=== PATIENT | male | born 1955 | race Caucasian/White ===

== ENCOUNTER → 2017-07-11 | Outpatient (REF) | payer BC ==
[~2017-07-11] MED LIST: /PANT40TA; ACET65TA; AMPI500C; COENZYME Q10; COLA100C2; FISHCAP; GLUCOSAMINE; LEVA500T; METROGEL; PERC7.5T8; PROT20TA11; THERGRAN; VICO5TAB; [UNRECOGNIZED DRUG - OTHER]; [UNRECOGNIZED DRUG - REMARK]
== END ==
LOC: M LAB REF 13:54
PROVIDERS: ATTEND Internal Medicine
DX: M79.1 Myalgia (principal); M25.50 Pain in unspecified joint

== ENCOUNTER → 2017-10-15 | Outpatient (REF) | payer BC ==
[2017-10-15 14:10] LABS: URIC ACID 8.1 MG/DL (3.5-7.2)
== END ==
LOC: M LAB REF 13:51
DX: M10.9 Gout, unspecified (principal)
CPT/HCPCS: 84550

== ENCOUNTER 2017-10-29 07:40 | Day surgery (SDC) | payer BC ==
[2017-10-29] MEDS: LR 1,000 ML IV (07:59)
[2017-10-29] MEDS ORDERED: LIDOCAINE 2% INJ 100 MG/5 ML SDV (FOR ANES.) As Ordered (08:44)
[2017-10-29] MEDS ORDERED: PROPOFOL 200 MG/20 ML VIAL As Ordered ×3 (08:44→09:18)
[2017-10-29] MEDS ORDERED: ONDANSETRON 4MG/2ML VIAL (J2405) As Ordered (09:00)
== END 2017-10-29 13:04 | disposition home or self-care (01) ==
LOC: M OPP 07:40
DX: Z12.11 Encounter for screening for malignant neoplasm of colon (principal); Z98.0 Intestinal bypass and anastomosis status; K64.4 Residual hemorrhoidal skin tags; K21.9 Gastro-esophageal reflux disease without esophagitis; R00.8 Other abnormalities of heart beat; M10.9 Gout, unspecified; K57.32 Diverticulitis of large intestine without perforation or abscess without bleeding; Z87.19 Personal history of other diseases of the digestive system; R12 Heartburn; I51.7 Cardiomegaly; M19.90 Unspecified osteoarthritis, unspecified site; M54.9 Dorsalgia, unspecified; G47.30 Sleep apnea, unspecified; R06.83 Snoring; N40.1 Benign prostatic hyperplasia with lower urinary tract symptoms; E66.01 Morbid (severe) obesity due to excess calories; Z88.8 Allergy status to other drugs, medicaments and biological substances; Z88.5 Allergy status to narcotic agent; Z79.82 Long term (current) use of aspirin; Z79.899 Other long term (current) drug therapy
CPT/HCPCS: G0121

== ENCOUNTER → 2018-02-17 | Outpatient (REF) | payer BC ==
[2018-02-17 14:07] LABS: URIC ACID 7.7 MG/DL (3.5-7.2)
== END ==
LOC: M LAB REF 13:27
DX: M10.9 Gout, unspecified (principal)
CPT/HCPCS: 84550

== ENCOUNTER → 2018-03-28 | Outpatient (REF) | payer BC ==
[2018-03-28 19:32] LABS: APPEARANCE, URINE CLEAR (CLEAR); BACTERIA, URINE AUTO NEGATIVE (NEGATIVE); BILIRUBIN, URINE AUTO NEGATIVE (NEGATIVE); BLOOD, URINE BLOOD NEGATIVE (NEGATIVE); COLOR, URINE YELLOW (YELLOW); GLUCOSE, URINE (UA) AUTO NEGATIVE (NEGATIVE); KETONE, URINE AUTO NEGATIVE (NEGATIVE); LEUKOCYTE ESTERASE, URINE AUTO NEGATIVE (NEGATIVE); NITRITE, URINE AUTO NEGATIVE (NEGATIVE); PROTEIN, URINE AUTO NEGATIVE (NEGATIVE); RBC, URINE AUTO 0 /HPF (0-3); SPECIFIC GRAVITY URINE AUTO 1.016 (1.002-1.035); SQUAMOUS EPITHELIAL CELL UR AU 0 /HPF (0-6); UROBILINOGEN, URINE AUTO 0.2 mg/dL (0.0-2.0); WBC, URINE AUTO 0 /HPF (0-3)
== END ==
LOC: M SMT 17:00
DX: N34.2 Other urethritis (principal)
CPT/HCPCS: 81001

== ENCOUNTER → 2018-04-07 | Outpatient (REF) | payer BC | LOC: M SMT 16:54 | DX: N40.1 Benign prostatic hyperplasia with lower urinary tract symptoms (principal) | CPT/HCPCS: 88108 ==

== ENCOUNTER → 2018-04-11 | Outpatient (CLI) | payer BC ==
[2018-04-11 16:49] LABS: BASO % 0.7 % (0.0-1.0); EOS # 0.2 10^3/uL (0.0-0.50); EOS % 2.6 % (0.0-3.0); HEMATOCRIT 45.7 % (42.0-52.0); HEMOGLOBIN 14.8 g/dl (13.5-17.5); IMMATURE GRANULOCYTE % 0.5 % (0-3.0); LYMPH # 1.4 10^3/uL (1.5-4.5); MEAN CORPUSCULAR HEMOGLOBIN 29.8 pg (27.0-33.0); MEAN CORPUSCULAR HGB CONC 32.4 g/dl (32.0-36.5); MEAN CORPUSCULAR VOLUME 92.1 fl (80.0-96.0); MONO # 0.6 10^3/uL (0.0-0.8); MONO % 9.7 % (0.0-5.0); NEUTROPHILS # 3.7 10^3/uL (1.8-7.7); NEUTROPHILS % 62.5 % (36.0-66.0); PLATELET COUNT, AUTOMATED 172 10^3/uL (150-450); RED BLOOD COUNT 4.96 10^6/uL (4.30-6.10); RED CELL DISTRIBUTION WIDTH 13.2 % (11.5-14.5); WHITE BLOOD COUNT 5.9 10^3/uL (4.0-10.0)
[2018-04-11 17:09] LABS: ALBUMIN 3.8 GM/DL (3.2-5.2); ANION GAP 8 MEQ/L (8-16); BLOOD UREA NITROGEN 14 MG/DL (7-18); CALCIUM LEVEL 8.6 MG/DL (8.8-10.2); CARBON DIOXIDE LEVEL 28 MEQ/L (21-32); CHLORIDE LEVEL 109 MEQ/L (98-107); CREATININE FOR GFR 0.98 MG/DL (0.70-1.30); GLOMERULAR FILTRATION RATE > 60.0 (>49); GLUCOSE, FASTING 95 MG/DL (70-100); PHOSPHORUS LEVEL 2.7 MG/DL (2.5-4.9); POTASSIUM SERUM 4.2 MEQ/L (3.5-5.1); SODIUM LEVEL 145 MEQ/L (136-145)
== END ==
LOC: M WUC 12:15
DX: R22.43 Localized swelling, mass and lump, lower limb, bilateral (principal)
CPT/HCPCS: 80069

== ENCOUNTER → 2018-08-14 | Outpatient (CLI) | payer BC ==
[2018-08-14 13:22] LABS: BASO % 0.4 % (0.0-1.0); EOS # 0.1 10^3/uL (0.0-0.50); EOS % 1.6 % (0.0-3.0); HEMATOCRIT 47.1 % (42.0-52.0); HEMOGLOBIN 15.4 g/dl (13.5-17.5); IMMATURE GRANULOCYTE # 0.1 10^3/uL (0-0); IMMATURE GRANULOCYTE % 0.7 % (0-3.0); LYMPH # 1.7 10^3/uL (1.5-4.5); LYMPH % 23.9 % (24.0-44.0); MEAN CORPUSCULAR HEMOGLOBIN 29.7 pg (27.0-33.0); MEAN CORPUSCULAR HGB CONC 32.7 g/dl (32.0-36.5); MEAN CORPUSCULAR VOLUME 90.8 fl (80.0-96.0); MONO # 0.7 10^3/uL (0.0-0.8); MONO % 9.4 % (0.0-5.0); NEUTROPHILS # 4.5 10^3/uL (1.8-7.7); PLATELET COUNT, AUTOMATED 177 10^3/uL (150-450); RED BLOOD COUNT 5.19 10^6/uL (4.30-6.10); RED CELL DISTRIBUTION WIDTH 12.9 % (11.5-14.5)
[2018-08-14 14:06] LABS: ESTIMATED AVERAGE GLUCOSE 117 MG/DL (60-110); HEMOGLOBIN A1c 5.7 %
[2018-08-14 14:36] LABS: C REACTIVE PROTEIN QUANTITATIV < 0.30 MG/DL (0.00-0.30); CHOLESTEROL LEVEL 154 MG/DL (<200); HDL CHOLESTEROL 40 MG/DL (>40); LDL CHOLESTEROL 95 MG/DL (<100); NON-HDL-C 114 MG/DL; NT-PRO BNP 59 PG/ML (<125); TRIGLYCERIDES LEVEL 95 MG/DL (<150); TROPONIN I < 0.02 NG/ML (< 0.10)
== END ==
LOC: M LAB 12:50
DX: R07.2 Precordial pain (principal)
CPT/HCPCS: 83036

== ENCOUNTER → 2018-08-27 | Outpatient (CLI) | payer BC ==
[~2018-08-27] MED LIST changes: +ASPI1TAB PO; +CO Q10CA PO; +FLAX10002 PO; +GLUC1CAP10 PO; +SAW1CAP2 PO
--- NOTE | 2018-08-28 07:32 | ECHO ---
DATE OF PROCEDURE: 08/27/2018 REFERRING PROVIDER: Dr. Doron Gloria PATIENT LOCATION: REASON FOR THE ECHOCARDIOGRAM: Shortness of breath. 2D MEASUREMENTS: IVS: 1.2 cm LV: 5.6 cm LVPW: 1.1 cm LA: 5.2 cm Aorta: 3.1 cm IVC: 2.3 cm DOPPLER MEASUREMENTS: Peak velocity across the aortic valve: 1.2 m/s Peak velocity across the LVOT: 0.84 m/s Mitral E: 0.70 Mitral A: 0.78 with a ratio of 0.9 Maximum tricuspid valve velocity: 2.1 m/s 2D COMMENTS: 1. Subjectively, the left ventricle appeared to be normal. Left ventricular wall thickness and systolic function are normal. The estimated global left ventricular systolic ejection fraction is 60-65%. 2. Moderately enlarged left atrium. Normal right atrium and right ventricle. 3. The atrial septum appeared to be normal without evidence of defect or shunt. 4. Normal aortic root. 5. No pericardial effusion seen. 6. Mildly calcified aortic valve with normal leaflet excursion. Mildly calcified mitral annulus with normal anterior mitral valve leaflet motion. Normal tricuspid valve and pulmonic valve. The proximal pulmonary artery branches were not well visualized. 7. The inferior vena cava is dilated, central venous pressure is mostly likely elevated. DOPPLER: It detects mild to moderate mitral regurgitation and trace tricuspid regurgitation. The calculated pulmonary artery systolic pressure was normal. Abnormal relaxation pattern was noted across the mitral valve annulus and mitral valve leaflets consistent with grade 1 left ventricular diastolic dysfunction. IMPRESSION: 1. Normal global left ventricular systolic function. There were features of left ventricular diastolic dysfunction, grade 1. 2. Aortic valve sclerosis without stenosis or aortic regurgitation. 3. Mild to moderate mitral regurgitation with a moderately enlarged left atrium. 4. Trace tricuspid regurgitation with a normal calculated pulmonary artery systolic pressure. 5. The study was technically limited due to poor acoustic window secondary to body habitus. Edited 08/28/2018 @ 0953 [facility] SWAPNIL
== END ==
LOC: M CARPUL 07:28
PROVIDERS: ATTEND Internal Medicine Cardiovascular Disease
DX: R06.02 Shortness of breath (principal)

== ENCOUNTER → 2018-09-23 | Outpatient (REF) | payer BC | LOC: M LAB REF 11:49 | PROVIDERS: ATTEND Internal Medicine | DX: M10.9 Gout, unspecified (principal) ==

== ENCOUNTER → 2018-09-25 | Outpatient (CLI) | payer BC ==
--- NOTE | 2018-09-25 19:51 | REP ---
Clinical: Premature ventricular contractions . Comparison: 05/10/2014 Technique: PA and lateral. Findings: The mediastinum and cardiac silhouette are normal. Chronic elevation to the right hemidiaphragm is again noted. The lung michael are clear and without acute consolidation, effusion, or pneumothorax. The skeletal structures are intact and normal. Impression: 1. No acute cardiopulmonary process. Electronically Signed by Trae Ramon MD 09/25/2018 07:42 P
== END ==
LOC: M RAD 07:57
PROVIDERS: ATTEND Internal Medicine
DX: I49.3 Ventricular premature depolarization (principal)

== ENCOUNTER → 2018-10-27 | Outpatient (CLI) | payer BC ==
[~2018-10-27] MED LIST changes: +8 HO650T2 PO; +AMIO200T PO; +ATOR40TA75 PO; +COLA100C5 PO; +FINA5TAB2 PO; +FLOM0.4C39 PO; +LOSA25TA14 PO; +PANT40TA3 PO; +VITA500064 PO; +VITMTA PO
[2018-10-27 11:11] LABS: ALT/SGPT 30 U/L (12-78); BILIRUBIN,TOTAL 0.7 MG/DL (0.2-1.0); BLOOD UREA NITROGEN 15 MG/DL (7-18); CALCIUM LEVEL 8.7 MG/DL (8.8-10.2); CARBON DIOXIDE LEVEL 30 MEQ/L (21-32); CHLORIDE LEVEL 108 MEQ/L (98-107); CREATININE FOR GFR 1.14 MG/DL (0.70-1.30); GLOMERULAR FILTRATION RATE > 60.0 (>49); GLUCOSE, FASTING 98 MG/DL (70-100); POTASSIUM SERUM 4.2 MEQ/L (3.5-5.1); SODIUM LEVEL 144 MEQ/L (136-145); TOTAL PROTEIN 6.6 GM/DL (6.4-8.2)
== END ==
LOC: M SMT 07:55
PROVIDERS: ATTEND Internal Medicine Cardiovascular Disease
DX: I42.9 Cardiomyopathy, unspecified (principal)

== ENCOUNTER → 2018-11-12 | Outpatient (CLI) | payer BC ==
--- NOTE | 2018-11-12 08:25 | REP ---
Clinical: Preoperative assessment . Comparison: 09/25/2018 . Technique: PA and lateral. Findings: The mediastinum and cardiac silhouette are normal. The lung michael are clear and without acute consolidation, effusion, or pneumothorax. The skeletal structures are intact and normal. Impression: 1. No acute cardiopulmonary process. Electronically Signed by Trae Ramon MD 11/12/2018 08:17 A
[2018-11-12 10:21] LABS: HEMATOCRIT 47.5 % (42.0-52.0); HEMOGLOBIN 15.2 g/dl (13.5-17.5); MEAN CORPUSCULAR HEMOGLOBIN 29.5 pg (27.0-33.0); MEAN CORPUSCULAR VOLUME 92.1 fl (80.0-96.0); PLATELET COUNT, AUTOMATED 173 10^3/uL (150-450); RED BLOOD COUNT 5.16 10^6/uL (4.30-6.10); WHITE BLOOD COUNT 6.6 10^3/uL (4.0-10.0)
[2018-11-12 10:23] LABS: BLOOD UREA NITROGEN 20 MG/DL (7-18); CALCIUM LEVEL 8.9 MG/DL (8.8-10.2); CARBON DIOXIDE LEVEL 30 MEQ/L (21-32); CHLORIDE LEVEL 108 MEQ/L (98-107); CREATININE FOR GFR 1.21 MG/DL (0.70-1.30); GLOMERULAR FILTRATION RATE > 60.0 (>49); GLUCOSE, FASTING 100 MG/DL (70-100); POTASSIUM SERUM 4.6 MEQ/L (3.5-5.1); SODIUM LEVEL 142 MEQ/L (136-145)
[2018-11-12 10:35] LABS: PROTHROMBIN TIME 13.3 SECONDS (12.1-14.4)
[2018-11-12 10:36] LABS: PARTIAL THROMBOPLASTIN TIME 30.3 SECONDS (25.4-37.6)
== END ==
LOC: M SMT 07:58
PROVIDERS: ATTEND Urology
DX: Z01.818 Encounter for other preprocedural examination (principal); N40.1 Benign prostatic hyperplasia with lower urinary tract symptoms; N39.0 Urinary tract infection, site not specified

== ENCOUNTER 2018-11-21 12:39 | Day surgery (SDC) | payer BC ==
--- NOTE | 2018-11-14 07:41 | CR ---
DATE OF CONSULTATION: 11/13/[address] Sahni: Thank you for asking me to see Mr. Carlos Enrique Brown in consultation prior to his prostatic surgery. As you know, Mr. Brown is a 63-year-old gentleman with a past medical history of morbid obesity, cardiomyopathy, sleep apnea, reporting that he is in his usual state of health. Patient has had recent cardiac testing which demonstrated frequent ventricular ectopy and he has been placed on amlodipine, atorvastatin and losartan by cardiology. He reports she is clinically tolerating all these medications. He saw cardiology in follow up and his ventricular ectopy has decreased. The patient reports he was not aware of the ectopy and denies any chest pain, palpitations, syncope or presyncope. Reports that he is very physically active at work and he is symptomatic. The patient does have obstructive sleep apnea compliant with CPAP, follows with [facility]. Patient has history of gout. He has had no recent flares. The patient does have a history of fatigue and myalgias and cramping. Reports right calf has been worse since overexertion. The patient does have a diagnosis of gastroesophageal reflux disease. He takes pantoprazole with good results. Patient has history of osteoarthritis and fibromyalgia. He tries to avoid meds. He rarely uses his cyclobenzaprine. The patient has lost weight. He is trying to do more portion control and be more active. Review of systems otherwise negative denying any fevers or chills, chest pain or shortness of breath, nausea, vomiting. Patient reports recent hematology consultation for Factor V deficiency, found no concerns after extensive blood work. PAST MEDICAL HISTORY: 1. Ventricular ectopy per Holter monitor 08/15/2018 with over 6000 PACs and 23,000 PVCs over the 24-hour period including couplets and ventricular runs, the Stress testing 08/18/2018 showed fair exercise tolerance with no inducible cardiovascular disease. 2. Cardiomyopathy with ejection fraction on 08/18/2018 showing ejection fraction of approximately 50%. 3. Morbid obesity. 4. Hyperglycemia. 5. Obstructive sleep apnea on CPAP with moderate pulmonary hypertension. 6. Gout. 7. Diverticular rupture with resultant colostomy complicated by reversal and large hiatal hernia requiring surgical intervention complicated by infection requiring multiple surgeries. 8. Allergic rhinitis. 9. Right carpal tunnel. 10. History of perirectal abscess. 11. Dyslipidemia. 12. Irritable bowel syndrome. 13. Hiatal hernia with previous EGD showing ulcers, duodenitis and follow up EGDs showing resolution. 14. Status post massive ventral incisional hernia repair 2010 complicated by poor healing and infection. 15. Fibromyalgia per rheumatology in 2016. 16. Benign prostatic hypertrophy (BPH) per urology. PATIENT'S MEDICATIONS: - amiodarone 200 mg daily - baby aspirin daily - atorvastatin 40 mg daily - Coenzyme Q10 daily - cyclobenzaprine 10 mg as needed - docusate 100 mg two pills daily - Excedrin migraine as needed - finasteride 5 mg daily - flaxseed oil daily - glucosamine chondroitin daily - Indocin as needed gout - Isogenic nutritional shakes - losartan 25 mg daily - Naper 3 daily - Protonix 40 mg twice daily - Senokot as needed - sucralfate as needed - tamsulosin 0.4 mg daily - tumeric two daily - Tylenol as needed - vitamin B12 daily - vitamin D daily DRUG ALLERGIES: None but intolerances to Nexium which causes diarrhea, phentermine and Afrin which cause insomnia. SOCIAL HISTORY: Never smoked. Rare alcohol. 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 FAMILY HISTORY: Father had prostate cancer, heart attack, osteoarthritis. Mother had obesity, varicose veins and from a pulmonary embolism. Paternal grandfather with premature heart attack. PHYSICAL EXAMINATION: Obese male in no acute distress. Vital signs: Weight 304 with a BMI of 50, O2 sat after exertion 97%, he is down 7 pounds from his last visit. His blood pressure is 114/74, heart rate is 75 with an occasional irregularity. HEENT exam: Head is normocephalic. Neck is supple. Pupils equal, reactive to light. Extraocular movements are intact. No thyromegaly, JVD or carotid bruits. Respiratory: Clear to auscultation, resonant to percussion. Cardiovascular: Occasional irregular beat, barely audible systolic murmur. Abdomen: Protuberant, multiple well-healed abdominal incisions. No hepatosplenomegaly. : Deferred, he sees urology. Extremities: At most trace pretibial edema. Peripheral pulses palpable. Dermatologic: Multiple villanueva angioma varicose veins. Neurologic: Alert and oriented. Cranial nerves II-XII are intact. EKG today with a rhythm strip shows normal sinus rhythm with an occasional PVC. Heart rate 75. He does have a first-degree AV block with a [place] interval of 224 milliseconds, a QRS of 106, QTC of 449. Otherwise normal R-wave progression, no atrial or ventricle hypertrophy. No pathologic Q-waves. Labs done at [facility] show negative urine culture 11/12/2018 and normal CBC, med profile, PT/PTT. IMPRESSION: Mr. Carlos Enrique Brown is a 63-year-old gentleman with cardiovascular risk factors positive for ventricular ectopy, cardiomyopathy but whose recent stress test in August showed no inducible disease and is felt to be optimized and at low risk for cardiovascular complications from his proposed surgical intervention which we further minimized by the following. 1. Ventricular ectopy. Take amiodarone as usual perioperatively as well as losartan. 2. Cardiomyopathy, ejection fraction approximately 50%. Take above meds as scheduled. Take Losartan as usual perioperatively. 3. Obesity. Commended for weight loss. 4. Obstructive sleep apnea. Bring CPAP to surgery. 5. Hyperlipidemia. Continue statin perioperatively. Hold fish oil, flax seed from now until surgery. Do not take amiodarone a.m. of surgery. 6. Osteoarthritis. Hold all supplements a.m. of surgery. 7. Gastroesophageal reflux disease. Take pantoprazole with sip of water a.m. of surgery. 8. Benign prostatic hypertrophy. Continue urologic medicines including finasteride and tamsulosin perioperatively. 9. Hold all other supplements a.m. of surgery. Please call with questions or concerns. SWAPNIL
[~2018-11-21] VITALS: Ht 167.6 cm; Wt 134.6 kg
[2018-11-21] MEDS ORDERED: LR 1,000 ML IV ONE (13:00)
[2018-11-21] MEDS ORDERED: ceFAZolin SOD 1 GM in D5W MINI-BAG PLUS 50 ML IV ONE (13:00)
[2018-11-21] MEDS ORDERED: dexameTHASONE 4 MG/ML 1ML VIAL (J1100) As Ordered ONE (16:12)
[2018-11-21] MEDS ORDERED: LIDOCAINE 2% INJ 100 MG/5 ML SDV (FOR ANES.) As Ordered ONE (16:12)
[2018-11-21] MEDS ORDERED: PROPOFOL 200 MG/20 ML VIAL As Ordered ONE (16:12)
[2018-11-21] MEDS ORDERED: ROCURONIUM BROMIDE 50 MG/5 ML VIAL As Ordered ONE ×2 (16:12→17:52)
[2018-11-21] MEDS ORDERED: ONDANSETRON 4MG/2ML VIAL (J2405) As Ordered ONE (16:12)
[2018-11-21] MEDS ORDERED: fentaNYL 250 MCG/5 ML INJECTION (J3010) As Ordered ONE (16:15)
[2018-11-21] MEDS ORDERED: MIDAZOLAM INJ 2 MG/2 ML VIAL (J2250) As Ordered ONE (16:15)
[2018-11-21] MEDS ORDERED: ePHEDrine SULFATE 25 MG/5 ML(5MG/ML) SYRINGE As Ordered ONE (16:54)
[2018-11-21] MEDS ORDERED: PHENYLephrine HCL 500 MCG/5 ML (100MCG/ML) SYRINGE (J2370) As Ordered ONE (16:54)
[2018-11-21] MEDS ORDERED: FUROSEMIDE 100 MG/10 ML VIAL (J1940) As Ordered ONE (18:08)
[2018-11-21] MEDS ORDERED: GLYCOPYRROLATE INJ 0.2 MG/ML 2 ML VIAL As Ordered ONE (18:19)
[2018-11-21] MEDS ORDERED: NEOSTIGMINE 10 MG/10 ML VIAL (J2710) As Ordered ONE (18:19)
[2018-11-21] MEDS ORDERED: fentaNYL 100 MCG/2 ML INJECTION (J3010) IV PRN (19:00)
[2018-11-21] MEDS ORDERED: METOCLOPRAMIDE INJ 10MG/2ML VIAL (J2765) IV PRN (19:00)
[2018-11-21] MEDS ORDERED: ONDANSETRON 4MG/2ML VIAL (J2405) IV PRN (19:00)
[2018-11-21] MEDS ORDERED: MEPERIDINE INJ 25 MG/ML VIAL (J2175) IV PRN (19:00)
[2018-11-21] MEDS ORDERED: ACETAMINOPHEN TAB 650MG DOSE (2X325MG) PO PRN (19:00)
[2018-11-21] MEDS ORDERED: LR 1,000 ML IV SCH (19:00)
[2018-11-21] MEDS ORDERED: PERCOCET 5MG/325MG TAB PO PRN (19:00)
[2018-11-21 20:50] VITALS: BP 123/60
--- NOTE | 2018-11-24 11:49 | RO ---
DATE OF PROCEDURE: 11/21/2018 PREPROCEDURE DIAGNOSIS: Benign prostatic hyperplasia. POSTPROCEDURE DIAGNOSIS: Benign prostatic hyperplasia. OPERATIVE PROCEDURE: Cystoscopy, button transurethral electrovaporization of the prostate. SURGEON: Fredi Sahni MD PROJECT ADMINISTRATIVE ASSISTANT: None. ANESTHESIA: General. OPERATIVE INDICATIONS: This is a 63-year-old male with benign prostatic hyperplasia refractory to medical therapy. He was brought to the operating room today for bloodless procedure. DESCRIPTION OF PROCEDURE: The patient was brought to the operating room and general anesthesia was induced. Prophylactic antibiotics were infused. He was then placed in dorsal lithotomy position then prepped and draped in the usual sterile fashion. At this point, the resectoscope was inserted through urethral meatus and advanced into the bladder using a visual obturator. Of note, the patient had high lobar benign prostatic hyperplasia. I also made note of the location of both ureteral orifices and they were not close to the bladder neck. I also made note of the location of the verumontanum. At this point, I began vaporizing hyperplastic tissue first from the median lobe and then circumferentially at the bladder neck. After that was done, I started vaporizing hyperplastic tissue in both lateral lobes. I kept doing this until there was a clear channel established. Throughout the procedure, I made sure not to vaporize too close to the ureteral orifices or distal to the verumontanum. Once there was a clear channel established, hemostasis was obtained using coagulation current. Once satisfied with hemostasis, the resectoscope was removed and the #18-Persian Chawla catheter was inserted into the bladder. The balloon was filled with 15 mL of sterile water and the catheter was connected to gravity drainage and this marked the conclusion of the procedure. The patient was then taken out of the dorsal lithotomy position, awakened from anesthesia, and transported to the recovery room in stable condition. ESTIMATED BLOOD LOSS: 10 mL. COMPLICATIONS: None. SPECIMENS: None. PLAN: The patient will followup in the clinic in about a week for catheter removal and voiding trial.
== END 2018-11-21 20:55 | disposition home or self-care (01) ==
LOC: M SDC 12:39
PROVIDERS: ATTEND Urology
DX: N40.1 Benign prostatic hyperplasia with lower urinary tract symptoms (principal); K21.9 Gastro-esophageal reflux disease without esophagitis; M10.9 Gout, unspecified; G47.30 Sleep apnea, unspecified; Z79.82 Long term (current) use of aspirin; Z79.899 Other long term (current) drug therapy
CPT/HCPCS: 52601; J0690; J1100; J1940; J2250; J2370; J2405; J2710; J3010

== ENCOUNTER → 2018-12-02 | Outpatient (REF) | payer BC ==
[~2018-12-02] MED LIST changes: -/PANT40TA; +PROT1TAB2
[2018-12-02 14:40] LABS: AMORPHOUS SEDIMENT LARGE (NEGATIVE); APPEARANCE, URINE TURBID (CLEAR); BACTERIA, URINE AUTO NEGATIVE (NEGATIVE); BILIRUBIN, URINE AUTO NEGATIVE (NEGATIVE); BLOOD, URINE BLOOD 3+ (NEGATIVE); COLOR, URINE AMBER (YELLOW); GLUCOSE, URINE (UA) AUTO NEGATIVE (NEGATIVE); KETONE, URINE AUTO NEGATIVE (NEGATIVE); LEUKOCYTE ESTERASE, URINE AUTO TRACE (NEGATIVE); MUCUS, URINE SMALL (NEGATIVE); NITRITE, URINE AUTO NEGATIVE (NEGATIVE); PROTEIN, URINE AUTO 1+ mg/dL (NEGATIVE); RBC, URINE AUTO 95 /HPF (0-3); SPECIFIC GRAVITY URINE AUTO 1.019 (1.002-1.035); SQUAMOUS EPITHELIAL CELL UR AU 0 /HPF (0-6); UROBILINOGEN, URINE AUTO 0.2 mg/dL (0.0-2.0); WBC, URINE AUTO 8 /HPF (0-3)
== END ==
LOC: M SMT 12:46
PROVIDERS: ATTEND Nurse Practitioner Family
DX: N40.1 Benign prostatic hyperplasia with lower urinary tract symptoms (principal)

== ENCOUNTER → 2018-12-19 | Outpatient (REF) | payer BC ==
[~2018-12-19] MED LIST changes: -ASPI1TAB PO; +ASPI81TA26 PO; +DITR5TAB PO; +LEVA1TAB2 PO; +OXYB5TAB10 PO; +[UNRECOGNIZED DRUG - REMARK] PO
== END ==
LOC: M SMT 12:53
PROVIDERS: ATTEND Nurse Practitioner Family
DX: N39.0 Urinary tract infection, site not specified (principal)

== ENCOUNTER 2018-12-23 04:35 | Observation (INO) | payer BC ==
[~2018-12-23] VITALS: Ht 167.6 cm; Wt 137.9 kg
[~2018-12-23 04:35] MED LIST changes: -DITR5TAB PO; -LEVA1TAB2 PO; -OXYB5TAB10 PO; -[UNRECOGNIZED DRUG - REMARK] PO
[2018-12-23 05:52] LABS: HEMATOCRIT 44.4 % (42.0-52.0); HEMOGLOBIN 14.2 g/dl (13.5-17.5); MEAN CORPUSCULAR HEMOGLOBIN 29.6 pg (27.0-33.0); MEAN CORPUSCULAR VOLUME 92.7 fl (80.0-96.0); PLATELET COUNT, AUTOMATED 182 10^3/uL (150-450); RED BLOOD COUNT 4.79 10^6/uL (4.30-6.10)
[2018-12-23 06:03] LABS: CALCIUM LEVEL 8.4 MG/DL (8.8-10.2); CREATININE FOR GFR 1.53 MG/DL (0.70-1.30); POTASSIUM SERUM 4.2 MEQ/L (3.5-5.1)
[2018-12-23] MEDS ORDERED: LORazepam 2 MG/ML VIAL (J2060) IV STA (06:13)
[2018-12-23] MEDS ORDERED: LIDOCAINE 2% 5ML JELLY UROJET TOP ONE (06:15)
[2018-12-23] MEDS ORDERED: ONDANSETRON 4MG/2ML VIAL (J2405) IV ONE (06:45)
[2018-12-23] MEDS: MORPHINE 4 MG/ML 1ML VIAL/SYRINGE (J2270) IV PRN ×2 (06:49→10:04)
--- NOTE | 2018-12-23 07:25 | REPVR ---
EXAM: US Pelvis Limited, Male EXAM DATE/TIME: 12/23/2018 5:37 AM CLINICAL HISTORY: 63 years old, male; Signs and symptoms; Bladder; Hematuria; Prior surgery; Surgery date: 1-6 months; Surgery type: Turp 11/21/18; Additional info: Hematuria post-op, R/O large clots TECHNIQUE: Imaging protocol: Real-time pelvic ultrasound with image documentation. COMPARISON: US PROSTATE TRANSRECTAL 07/01/2015 9:26 AM FINDINGS: Bladder: The urinary bladder measures 11.8 x 6.4 x 8.7 cm, for an estimated volume of 429 mL. This was prior to voiding, and the patient was unable to void. Along the posterior inferior aspect of the urinary bladder is a somewhat ovoid heterogeneous, predominantly hypoechoic area. This was not measured, and vascularity was not assessed. IMPRESSION: 1. Urinary bladder volume 429 mL. Patient reportedly unable to void. 2. Ovoid heterogeneous area along the posterior inferior aspect of the bladder, not measured and vascularity not assessed. This could represent blood clot and/or pathology. Electronically signed by: Dao Camacho On 12/23/2018 07:25:26 AM
[2018-12-23 11:07] LABS: HEMATOCRIT 43.7 % (42.0-52.0); MEAN CORPUSCULAR HEMOGLOBIN 29.4 pg (27.0-33.0); MEAN CORPUSCULAR VOLUME 91.6 fl (80.0-96.0); PLATELET COUNT, AUTOMATED 191 10^3/uL (150-450); RED BLOOD COUNT 4.77 10^6/uL (4.30-6.10); WHITE BLOOD COUNT 10.9 10^3/uL (4.0-10.0)
--- NOTE | 2018-12-23 11:45 | ED PDOC ---
Post-Departure Follow-Up dr denton faxed formal report of bladder us for fu Rocio Jack MD Dec 23, 2018 11:45
[2018-12-23] MEDS ORDERED: oxyBUTYnin 5 MG TAB PO ONE (12:45)
[2018-12-23] MEDS ORDERED: ONDANSETRON 4MG/2ML VIAL (J2405) IV PRN (13:15)
[2018-12-23] MEDS ORDERED: BELLADONNA ALKALOIDS/OPIUM SUPP PR PRN (13:15)
[2018-12-23] MEDS ORDERED: ACETAMINOPHEN TAB 650MG DOSE (2X325MG) PO PRN (13:15)
[2018-12-23] MEDS ORDERED: LEVA1TAB2 PO (14:00)
[2018-12-23] MEDS ORDERED: OXYB5TAB10 PO (14:00)
[2018-12-23 16:00] VITALS: BP 133/70
[2018-12-23] MEDS: FINASTERIDE 5 MG TAB PO SCH (16:21)
[2018-12-23] MEDS: PANTOPRAZOLE 40MG TAB (PROTONIX) PO SCH (16:21)
[2018-12-23] MEDS: PERCOCET 5MG/325MG TAB PO PRN ×2 (16:22→20:28)
[2018-12-23] MEDS: DOCUSATE SODIUM 100 MG CAP PO SCH ×2 (16:22→20:28)
--- NOTE | 2018-12-23 16:56 | SMCUROLCON ---
Urology Consultation General Date of Consultation 12/23/18 Reason For Consultation This patient is seen for Hematuria Urinary Retention. History of Present Illness This is a 63 y/o M w/ BPH s/p TURP 11/21/18 and prostatitis, who presented to the ER this morning w/ gross hematuria and urinary retention. A 3-way catheter was inserted and CBI was started. The patient has been having severe bladder spasms since insertion of the catheter. A bladder US was notable for a large amount of clot in the bladder. His Hb was stable at 14.2 and his Cr bumped to 1.5 from a baseline of 1.2. The patient notes that he continues to have urethral and rectal pain due to prostatitis. He started taking levaquin and oxybutynin yesterday afternoon. He denies weakness. He denies fevers or chills. Past Medical History Medical History Obesity WINSTON Gout BPH Surgical Hstory Bowel Resection Colostomy Reversal TURP Medications Current Medications Current Medications Acetaminophen (Tylenol Tab) 650 mg Q4HP PRN PO MILD PAIN or TEMP > 101; Start 12/23/18 at 13:15 Amiodarone HCl (Pacerone, Cordarone) 200 mg QHS PO ; Start 12/23/18 at 21:00 Atorvastatin Calcium (Lipitor) 40 mg QHS PO ; Start 12/23/18 at 21:00 Belladonna Alkaloids/Opium (B & O Supp) 1 ea Q12HP PRN [place] BLADDER SPASM; Start 12/23/18 at 13:15 Docusate Sodium (Colace) 100 mg BID PO Last administered on 12/23/18at 16:22; Start 12/23/18 at 09:00 Finasteride (Proscar) 5 mg DAILY PO Last administered on 12/23/18at 16:21; Start 12/23/18 at 09:00 Home Med (Med Rec Complete!) ASDIRECTED XX ; Start 12/23/18 at 14:15; Stop 12/23/18 at 14:15; Status DC Levofloxacin (Levaquin) 500 mg QHS PO ; Start 12/23/18 at 21:00; Stop 12/30/18 at 20:59 Lorazepam (Ativan) 0.5 mg STAT STAT IV Last administered on 12/23/18at 06:13; Start 12/23/18 at 06:13; Stop 12/23/18 at 06:14; Status DC Losartan Potassium (Cozaar) 25 mg QHS PO ; Start 12/23/18 at 21:00 Morphine Sulfate (Morphine Sulfate Inj) 4 mg Q30M PRN IV SEVERE PAIN (PS 8-10) Last administered on 12/23/18at 10:04; Start 12/23/18 at 06:45; Stop 12/23/18 at 10:04; Status DC Ondansetron HCl (ZOFRAN INJection) 4 mg Q6HP PRN IV NAUSEA OR VOMITING; Start 12/23/18 at 13:15 Oxybutynin Chloride (Ditropan) 5 mg TIDP PRN PO BLADDER SPASM; Start 12/23/18 at 13:15 Oxycodone/ Acetaminophen (Percocet 5mg/ 325mg Tablet) 1 tab Q4HP PRN PO MODERATE PAIN (PS 5-7) Last administered on 12/23/18at 16:22; Start 12/23/18 at 13:15 Pantoprazole Sodium (Protonix) 80 mg DAILY PO Last administered on 12/23/18at 16:21; Start 12/23/18 at 09:00 Allergies Allergies: Coded Allergies: codeine (Verified Adverse Reaction, Mild, UPSET STOMACH, 12/23/18) Review of Systems Constitutional: Denies: Fever, Chills, Sweats, Weakness, Malaise Skin: Denies: Rash, Lesions, Breakdown, Nail Changes Pulmonary: Denies: Dyspnea, Cough Cardiovascular: Denies Chest Pain, Denies Palpitations Gastrointestinal: Reports: Abdominal Pain (suprapubic pain); Denies: Nausea, Vomiting Genitourinary: Reports: Dysuria, Hematuria, Retention Musculoskeletal: Denies: Neck Pain, Back Pain Physical Examination General Exam: Alert, Cooperative Chest Exam: Clear to auscultation Heart Exam: Rate Normal Abdomen Exam: Soft Male Exam 24 Fr 3-way catheter in place w/ irrigation on medium drip and outflow dark pink Neuro Exam: Normal Speech Psych Exam: Mental status NL Vital Signs/I&O Vital Signs Date Time Temp Pulse Resp B/P (MAP) Pulse Ox O2 Delivery O2 Flow Rate FiO2 12/23/18 16:22 18 12/23/18 15:14 98.2 55 106/81 (89) 95 Room Air Laboratory Data 24H Labs Laboratory Tests 2 12/23/18 05:25: Nucleated Red Blood Cells % (auto) 0.0, Anion Gap 7L, Glomerular Filtration Rate 49.0, Blood Urea Nitrogen 24H, Creatinine 1.53H, Sodium Level 142, Potassium Level 4.2, Chloride Level 110H, Carbon Dioxide Level 25, Calcium Level 8.4L 12/23/18 10:55: Nucleated Red Blood Cells % (auto) 0.0 CBC/BMP Laboratory Tests 12/23/18 05:25 Red Blood Count 4.79, Mean Corpuscular Volume 92.7, Mean Corpuscular Hemoglobin 29.6, Mean Corpuscular Hemoglobin Concent 32.0, Red Cell Distribution Width 13.4, Calcium Level 8.4 L 12/23/18 10:55 Red Blood Count 4.77, Mean Corpuscular Volume 91.6, Mean Corpuscular Hemoglobin 29.4, Mean Corpuscular Hemoglobin Concent 32.0, Red Cell Distribution Width 13.4 Assessment This is a 63 y/o M w/ BPH s/p TURP 11/21/18 and prostatitis, who presented to the ER this morning w/ gross hematuria and urinary retention. I manually irrigated his bladder w/ approximately 1L of normal saline and removed a large amount of clots. I irrigated until no more clots returned. Once done the catheter was connected back to gravity drainage and CBI was put on a medium drip. The patient had a lot of discomfort from bladder spasms while manually irrigating his bladder but this improved once done. I recommended that we admit him for observation. If his urine is clear tomorrow w/ CBI off, we will remove the catheter and do a voiding trial. Plan - admit for observation - cont CBI and titrate drip so that urine is pink or clearer - cont home meds - cont levaquin - oxybutynin and B&O suppositories prn bladder spasms - strict I/Os - SCDs - ambulate - regular diet GISELE BECK MD Dec 23, 2018 16:56
[2018-12-23] MEDS: oxyBUTYnin 5 MG TAB PO PRN (17:07)
[2018-12-23 20:30] VITALS: BP 128/82
[2018-12-23] MEDS ORDERED: LOSARTAN 25 MG TAB PO SCH (21:00)
[2018-12-23] MEDS ORDERED: LevoFLOXacin 500 MG TABLET PO SCH (21:00)
[2018-12-23] MEDS ORDERED: ATORVASTATIN 20 MG TAB PO SCH (21:00)
[2018-12-23] MEDS ORDERED: AMIODARONE 200 MG TAB (PACERONE) PO SCH (21:00)
[2018-12-23 22:00] VITALS: BP 128/82
[2018-12-24 02:00] VITALS: BP 101/57
[2018-12-24] MEDS: PERCOCET 5MG/325MG TAB PO PRN ×2 (04:54→09:17)
[2018-12-24] MEDS: oxyBUTYnin 5 MG TAB PO PRN (04:54)
[2018-12-24 06:00] VITALS: BP 105/51
[2018-12-24 06:37] LABS: HEMATOCRIT 42.1 % (42.0-52.0); HEMOGLOBIN 13.3 g/dl (13.5-17.5); MEAN CORPUSCULAR HGB CONC 31.6 g/dl (32.0-36.5); PLATELET COUNT, AUTOMATED 172 10^3/uL (150-450); RED BLOOD COUNT 4.43 10^6/uL (4.30-6.10); WHITE BLOOD COUNT 9.1 10^3/uL (4.0-10.0)
[2018-12-24 07:00] LABS: BLOOD UREA NITROGEN 19 MG/DL (7-18); CALCIUM LEVEL 8.3 MG/DL (8.8-10.2); CARBON DIOXIDE LEVEL 31 MEQ/L (21-32); CHLORIDE LEVEL 105 MEQ/L (98-107); CREATININE FOR GFR 1.19 MG/DL (0.70-1.30); GLOMERULAR FILTRATION RATE > 60.0 (>49); GLUCOSE, FASTING 109 MG/DL (70-100); POTASSIUM SERUM 3.9 MEQ/L (3.5-5.1); SODIUM LEVEL 142 MEQ/L (136-145)
--- NOTE | 2018-12-24 07:39 | IPNPDOC ---
Assessment/Plan Date Seen The patient was seen on 12/24/18. Patient Summary This is a 63 y/o M w/ BPH s/p TURP 11/21/18 and prostatitis, who presented to the ER yesterday w/ gross hematuria and urinary retention. He is doing much better this morning. His Hb is stable. His Cr is trending down. Plan/VTE VTE Prophylaxis Ordered?: Yes VTE Exclusion Mechanical Proph: N/A:VTE Prophy Ordered Plan/Urinary Catheter Urinary Catheter: D/C Chawla (d/c catheter this morning if urine remains pink or clearer w/ irrigation off) Plan - turn off CBI - ambulate - if urine remains pink or clearer w/ CBI off, then remove catheter - regular diet - discharge home after patient voids Subjective Review oF Systems Chief Complaint The patient is a 63-year-old male admitted with a reason for visit of Hematuria Urinary Retention. Events since Last Encounter No acute events o/n. Pain from bladder spasms were much better o/n. He also notes that his urethral pain has improved. Nursing did not have to manually irrigate the catheter o/n. Objective Physical Examination General Exam: Alert, Cooperative, No Acute Distress ABDOMEN EXAM: Soft Skin Exam: Nl turgor and temperature Neuro Exam: Normal Speech Psych Exam: Mental status NL, Mood NL Other physical findings 3-way catheter in place w/ irrigation on minimal drip and urine clear yellow Vital Signs/I&O Vital Signs Date Time Temp Pulse Resp B/P (MAP) Pulse Ox O2 Delivery O2 Flow Rate FiO2 12/24/18 05:24 16 12/24/18 02:00 97.0 72 101/57 (72) 94 12/23/18 15:14 Room Air I&O- Last 24 Hours up to 6 AM 12/24/18 06:00 Intake Total 3030 ml Output Total 2200 ml Balance 830 ml Laboratory Data Labs 24H Laboratory Tests 2 12/23/18 10:55: Nucleated Red Blood Cells % (auto) 0.0 12/24/18 06:19: Nucleated Red Blood Cells % (auto) 0.0, Anion Gap 6L, Glomerular Filtration Rate > 60.0, Blood Urea Nitrogen 19H, Creatinine 1.19, Sodium Level 142, Potassium Level 3.9, Chloride Level 105, Carbon Dioxide Level 31, Calcium Level 8.3L CBC/BMP Laboratory Tests 12/23/18 10:55 Red Blood Count 4.77, Mean Corpuscular Volume 91.6, Mean Corpuscular Hemoglobin 29.4, Mean Corpuscular Hemoglobin Concent 32.0, Red Cell Distribution Width 13.4 12/24/18 06:19 Red Blood Count 4.43, Mean Corpuscular Volume 95.0, Mean Corpuscular Hemoglobin 30.0, Mean Corpuscular Hemoglobin Concent 31.6 L, Red Cell Distribution Width 13.6, Calcium Level 8.3 L GISELE BECK MD Dec 24, 2018 07:39
[2018-12-24] MEDS: PANTOPRAZOLE 40MG TAB (PROTONIX) PO SCH (09:16)
[2018-12-24] MEDS: DOCUSATE SODIUM 100 MG CAP PO SCH (09:16)
[2018-12-24] MEDS: FINASTERIDE 5 MG TAB PO SCH (09:17)
[2018-12-24 10:00] VITALS: BP 123/63
[2018-12-24] MEDS ORDERED: [UNRECOGNIZED DRUG - REMARK] PO (13:21)
[2018-12-24] MEDS ORDERED: DITR5TAB PO (13:21)
--- NOTE | 2018-12-25 16:46 | DSES ---
DATE OF ADMISSION: 12/23/2018 DATE OF DISCHARGE: 12/24/2018 ADMITTING PHYSICIAN: Dr. Fredi Sahni DISCHARGING PHYSICIAN: Dr. Fredi Sahni ADMISSION DIAGNOSES: Gross hematuria, urinary retention. DISCHARGE DIAGNOSES: Gross hematuria, urinary retention. HISTORY OF PRESENT ILLNESS: This is a 63-year-old male who underwent a transurethral electrovaporization of the prostate a little over 1 month ago. He started having a large amount of blood in the urine on December 23 early in the morning and ultimately could not void. He presented to the emergency room and was found to have a large amount of blood clots in the bladder and was started on continuous bladder irrigation. He was admitted to the hospital for care. HOSPITALIZATION COURSE: When the patient was evaluated in the emergency room on 12/23/2018, I manually irrigated his bladder and removed a large amount of blood clots. After that was done, he continued the continuous bladder irrigation and admitted to the regular nursing floor. While there they were able to titrate down the irrigation until it was completely off and his urine remained clear. It was indicated that his hematuria had resolved. His hemoglobin was stable throughout his stay. His catheter was removed on 12/24/2018, and he voided without any difficulty. He was therefore discharged home with the plan for him to continue a long course of antibiotics for prostatitis. It was also recommended that he minimize his activities for the next 2 weeks for allow additional healing. He will followup in clinic in a few weeks.
== END 2018-12-24 14:25 | disposition home or self-care (01) ==
LOC: M ED 04:35 → M ED INP 13:07 → M MS5PR 15:35
PROVIDERS: ADMIT Urology; ATTEND Urology
DX: R31.0 Gross hematuria (principal); R33.9 Retention of urine, unspecified; N41.1 Chronic prostatitis; G47.33 Obstructive sleep apnea (adult) (pediatric); E66.9 Obesity, unspecified; M10.9 Gout, unspecified; N40.0 Benign prostatic hyperplasia without lower urinary tract symptoms; Z79.899 Other long term (current) drug therapy
CPT/HCPCS: 36415; 51700; 76857; 80048; 85027; 86850; 86900; 86901; 96374; 96375; 96376; 99285; J2060; J2270; J2405

== ENCOUNTER → 2018-12-31 | Outpatient (REF) | payer BC ==
[~2018-12-31] MED LIST changes: +DITR5TAB PO; +LEVA1TAB2 PO; +OXYB5TAB10 PO; +[UNRECOGNIZED DRUG - REMARK] PO
== END ==
LOC: M LAB REF 12:29
PROVIDERS: ATTEND Internal Medicine
DX: N39.0 Urinary tract infection, site not specified (principal)

== ENCOUNTER → 2018-12-31 | Outpatient (CLI) | payer BC ==
--- NOTE | 2019-01-01 03:39 | REP ---
Clinical: Dysuria and hematuria with history of prostate surgery. Technique: Real time merrill scale ultrasound examination using curved array transducer. Findings: The bladder is relatively normal in appearance without wall thickening or obvious mass lesion. Prevoid bladder with the patient complaining of fullness measures 6.6 x 5.5 x 5.4 cm (128 ml) postvoid bladder measures 3.5 x 3.2 x 2.8 cm (20 ml). Postvoid residual equals 15%. Findings: No obvious focal abnormality appreciated. Electronically Signed by Trae Ramon MD 01/01/2019 03:31 A
== END ==
LOC: M RAD 13:02
PROVIDERS: ATTEND Internal Medicine
DX: R30.0 Dysuria (principal); R31.9 Hematuria, unspecified

== ENCOUNTER → 2019-01-30 | Outpatient (CLI) | payer BC ==
[2019-01-30 14:24] LABS: BASO % 0.4 % (0.0-1.0); EOS # 0.1 10^3/uL (0.0-0.50); EOS % 1.1 % (0.0-3.0); HEMATOCRIT 42.8 % (42.0-52.0); HEMOGLOBIN 13.7 g/dl (13.5-17.5); LYMPH # 1.4 10^3/uL (1.5-4.5); LYMPH % 19.6 % (24.0-44.0); MEAN CORPUSCULAR HEMOGLOBIN 29.4 pg (27.0-33.0); MEAN CORPUSCULAR VOLUME 91.8 fl (80.0-96.0); MONO # 0.7 10^3/uL (0.0-0.8); MONO % 9.7 % (0.0-5.0); NEUTROPHILS # 4.9 10^3/uL (1.8-7.7); NEUTROPHILS % 68.4 % (36.0-66.0); PLATELET COUNT, AUTOMATED 195 10^3/uL (150-450); RED BLOOD COUNT 4.66 10^6/uL (4.30-6.10); WHITE BLOOD COUNT 7.1 10^3/uL (4.0-10.0)
[2019-01-30 14:38] LABS: ALBUMIN 3.9 GM/DL (3.2-5.2); ALT/SGPT 37 U/L (12-78); BILIRUBIN,TOTAL 0.7 MG/DL (0.2-1.0); BLOOD UREA NITROGEN 19 MG/DL (7-18); CALCIUM LEVEL 9.2 MG/DL (8.8-10.2); CARBON DIOXIDE LEVEL 31 MEQ/L (21-32); CHLORIDE LEVEL 107 MEQ/L (98-107); CREATININE FOR GFR 1.25 MG/DL (0.70-1.30); GLOMERULAR FILTRATION RATE > 60.0 (>49); GLUCOSE, FASTING 102 MG/DL (70-100); NT-PRO BNP 120 PG/ML (<125); POTASSIUM SERUM 4.2 MEQ/L (3.5-5.1); SODIUM LEVEL 143 MEQ/L (136-145); TOTAL PROTEIN 6.1 GM/DL (6.4-8.2)
== END ==
LOC: M SMT 11:34
PROVIDERS: ATTEND Internal Medicine Cardiovascular Disease
DX: I50.32 Chronic diastolic (congestive) heart failure (principal); I34.0 Nonrheumatic mitral (valve) insufficiency; I49.3 Ventricular premature depolarization; I42.9 Cardiomyopathy, unspecified; R94.31 Abnormal electrocardiogram [ECG] [EKG]

== ENCOUNTER → 2019-06-02 | Outpatient (REF) | payer BC ==
[2019-06-02 18:36] LABS: APPEARANCE, URINE CLEAR (CLEAR); BACTERIA, URINE AUTO NEGATIVE (NEGATIVE); BILIRUBIN, URINE AUTO NEGATIVE (NEGATIVE); BLOOD, URINE BLOOD NEGATIVE (NEGATIVE); COLOR, URINE YELLOW (YELLOW); GLUCOSE, URINE (UA) AUTO NEGATIVE (NEGATIVE); KETONE, URINE AUTO NEGATIVE (NEGATIVE); LEUKOCYTE ESTERASE, URINE AUTO NEGATIVE (NEGATIVE); MUCUS, URINE SMALL (NEGATIVE); NITRITE, URINE AUTO NEGATIVE (NEGATIVE); PROTEIN, URINE AUTO NEGATIVE (NEGATIVE); RBC, URINE AUTO 0 /HPF (0-3); SPECIFIC GRAVITY URINE AUTO 1.019 (1.002-1.035); SQUAMOUS EPITHELIAL CELL UR AU 0 /HPF (0-6); UROBILINOGEN, URINE AUTO 0.2 mg/dL (0.0-2.0); WBC, URINE AUTO 0 /HPF (0-3)
== END ==
LOC: M SMT 17:10
PROVIDERS: ATTEND Urology
DX: N40.1 Benign prostatic hyperplasia with lower urinary tract symptoms (principal)

== ENCOUNTER → 2019-06-03 | Outpatient (CLI) | payer BC | LOC: M SMT 14:45 | PROVIDERS: ATTEND Urology | DX: Z12.5 Encounter for screening for malignant neoplasm of prostate (principal) | CPT/HCPCS: 36415; G0103 ==

== ENCOUNTER → 2019-06-11 | Outpatient (REF) | payer BC | LOC: M LAB REF 10:58 | PROVIDERS: ATTEND Physician Assistant Medical | DX: J31.0 Chronic rhinitis (principal) ==

== ENCOUNTER → 2019-07-20 | Outpatient (CLI) | payer BC ==
[2019-07-20 18:20] LABS: ALBUMIN 3.8 GM/DL (3.2-5.2); BILIRUBIN,TOTAL 0.8 MG/DL (0.2-1.0); CALCIUM LEVEL 9.2 MG/DL (8.8-10.2); CREATININE FOR GFR 1.36 MG/DL (0.70-1.30); POTASSIUM SERUM 4.1 MEQ/L (3.5-5.1); THYROID STIMULATING HORMONE 1.19 uIU/ML (0.358-3.740); TOTAL PROTEIN 6.5 GM/DL (6.4-8.2)
== END ==
LOC: M SMT 13:29
PROVIDERS: ATTEND Internal Medicine Cardiovascular Disease
DX: I50.32 Chronic diastolic (congestive) heart failure (principal); R94.31 Abnormal electrocardiogram [ECG] [EKG]

== ENCOUNTER → 2019-10-22 | Outpatient (REF) | payer BC ==
[2019-10-22 17:09] LABS: INFLUENZA A AMPLIFICATION POSITIVE (NEGATIVE); INFLUENZA B AMPLIFICATION NEGATIVE (NEGATIVE)
== END ==
LOC: M LAB REF 16:23
PROVIDERS: ATTEND Internal Medicine
DX: R50.9 Fever, unspecified (principal)

== ENCOUNTER → 2019-12-22 | Outpatient (CLI) | payer BC ==
[2019-12-22 20:23] LABS: THYROID STIMULATING HORMONE 1.65 uIU/ML (0.358-3.740)
--- NOTE | 2019-12-23 17:39 | REP ---
Clinical: Shortness of breath . Comparison: 11/12/2018, 09/25/2018 . Technique: PA and lateral. Findings: The mediastinum and cardiac silhouette are stable. Elevation to the right hemidiaphragm is again noted. The visualized lung michael are clear and without acute consolidation, effusion, or pneumothorax. The skeletal structures are intact and normal. Impression: 1. No acute cardiopulmonary process. 2. Chronic elevation to the right hemidiaphragm. Electronically Signed by Trae Ramon MD 12/23/2019 05:31 P
== END ==
LOC: M WUC 15:57
PROVIDERS: ATTEND Internal Medicine Cardiovascular Disease
DX: I49.3 Ventricular premature depolarization (principal)

== ENCOUNTER → 2021-03-29 | Outpatient (REF) | payer BC ==
[~2021-03-29] MED LIST changes: -AMIO200T PO; +AMIO200T3 PO; +PANT40TA29 PO; -PANT40TA3 PO
== END ==
LOC: M LAB REF 11:18
PROVIDERS: ATTEND Internal Medicine
DX: I50.32 Chronic diastolic (congestive) heart failure (principal); N32.81 Overactive bladder

== ENCOUNTER → 2021-04-26 | Outpatient (REF) | payer BC | LOC: M LAB REF 09:32 | PROVIDERS: ATTEND Physician Assistant | DX: R30.0 Dysuria (principal) ==

== ENCOUNTER → 2021-06-06 | Outpatient (REF) | payer BC | LOC: M WUC 11:36 | PROVIDERS: ATTEND Physician Assistant | DX: R30.0 Dysuria (principal); J06.9 Acute upper respiratory infection, unspecified ==

== ENCOUNTER → 2021-06-19 | Outpatient (REF) | payer BC | LOC: M LAB REF 16:34 | PROVIDERS: ATTEND Internal Medicine | DX: I50.32 Chronic diastolic (congestive) heart failure (principal); I42.8 Other cardiomyopathies ==

== ENCOUNTER → 2021-11-22 | Outpatient (REF) | payer MEDICARE ==
[~2021-11-22] MED LIST changes: -AMIO200T3 PO; +AMIO200T49 PO; +LOSA25TA13 PO; -LOSA25TA14 PO
== END ==
LOC: M WUC 10:42
PROVIDERS: ATTEND Physician Assistant
DX: R30.0 Dysuria (principal)

== ENCOUNTER → 2022-02-26 | Outpatient (REF) | payer MEDICARE | LOC: M LAB REF 16:24 | PROVIDERS: ATTEND Internal Medicine | DX: M79.605 Pain in left leg (principal) ==

== ENCOUNTER → 2022-05-04 | Outpatient (REF) | payer MEDICARE | LOC: M LAB REF 11:58 | PROVIDERS: ATTEND Internal Medicine | DX: I50.32 Chronic diastolic (congestive) heart failure (principal) ==

== ENCOUNTER → 2022-09-18 | Outpatient (CLI) | payer MEDICARE | LOC: M RAD 12:08 | PROVIDERS: ATTEND Internal Medicine | DX: M51.34 Other intervertebral disc degeneration, thoracic region (principal); R31.0 Gross hematuria; N39.0 Urinary tract infection, site not specified ==

== ENCOUNTER → 2022-09-18 | Outpatient (CLI) | payer MEDICARE ==
[2022-09-18 12:59] LABS: APPEARANCE, URINE MANUAL CLEAR (CLEAR); COLOR, URINE MANUAL YELLOW (YELLOW)
[2022-09-18 13:00] LABS: SPECIFIC GRAVITY,URINE MANUAL 1.005 (1.002-1.035)
[2022-09-18 13:01] LABS: BILIRUBIN, URINE MANUAL NEGATIVE (NEGATIVE); GLUCOSE, URINE (UA) MANUAL NEGATIVE (NEGATIVE); KETONE, URINE MANUAL NEGATIVE (NEGATIVE); LEUKOCYTE ESTERASE, URINE MAN NEGATIVE (NEGATIVE); NITRITE, URINE MANUAL NEGATIVE (NEGATIVE); PROTEIN, URINE MANUAL NEGATIVE (NEGATIVE); UROBILINOGEN, URINE MANUAL NORMAL (NORMAL)
[2022-09-18 13:02] LABS: BLOOD URINE MANUAL NEGATIVE (NEGATIVE)
== END ==
LOC: M LAB 12:04
PROVIDERS: ATTEND Urology
DX: R31.0 Gross hematuria (principal); N39.0 Urinary tract infection, site not specified

== ENCOUNTER → 2022-11-20 | Outpatient (REF) | payer MEDICARE | LOC: M LAB REF 11:55 | PROVIDERS: ATTEND Physician Assistant Medical | DX: J32.9 Chronic sinusitis, unspecified (principal) ==

== ENCOUNTER → 2022-11-29 | Outpatient (CLI) | payer MEDICARE | LOC: M RAD 06:43 | PROVIDERS: ATTEND Urology | DX: N20.0 Calculus of kidney (principal) ==

== ENCOUNTER → 2023-01-01 | Outpatient (REF) | payer MEDICARE ==
[~2023-01-01] MED LIST changes: -VITA500064 PO; +VITA500065 PO
== END ==
LOC: M LAB REF 12:10
PROVIDERS: ATTEND Physician Assistant
DX: N41.0 Acute prostatitis (principal)

== ENCOUNTER → 2023-01-25 | Outpatient (REF) | payer MEDICARE | LOC: M LAB REF 18:52 | PROVIDERS: ATTEND Physician Assistant | DX: R30.0 Dysuria (principal) ==

== ENCOUNTER 2023-02-15 23:44 | Emergency (ER) | payer MEDICARE ==
[~2023-02-15] VITALS: Ht 170.2 cm; Wt 138.9 kg
[2023-02-16 01:50] LABS: BASO % 0.2 % (0.0-1.0); EOS # 0.1 10^3/uL (0.0-0.5); HEMATOCRIT 47.2 % (42.0-52.0); HEMOGLOBIN 15.4 g/dl (13.5-17.5); LYMPH # 1.2 10^3/uL (1.5-5.0); LYMPH % 13.1 % (24.0-44.0); MEAN CORPUSCULAR HEMOGLOBIN 29.6 pg (27.0-33.0); MEAN CORPUSCULAR HGB CONC 32.6 g/dl (32.0-36.5); MEAN CORPUSCULAR VOLUME 90.6 fl (80.0-96.0); MONO # 0.7 10^3/uL (0.0-0.8); MONO % 7.9 % (2.0-8.0); NEUTROPHILS # 7.1 10^3/uL (1.5-8.5); NEUTROPHILS % 77.4 % (36.0-66.0); PLATELET COUNT, AUTOMATED 175 10^3/uL (150-450); RED BLOOD COUNT 5.21 10^6/uL (4.30-6.10); WHITE BLOOD COUNT 9.1 10^3/uL (4.0-10.0)
[2023-02-16 02:00] LABS: INR 0.97; PROTHROMBIN TIME 13.1 SECONDS (12.5-14.5)
[2023-02-16 02:03] LABS: D-DIMER QUANT 815.51 ng/ml (<500)
[2023-02-16 02:13] LABS: LIPASE 38 U/L (12-53)
[2023-02-16 02:15] LABS: ALBUMIN 4.2 G/DL (3.2-5.2); ALKALINE PHOSPHATASE 88 U/L (46-116); ALT/SGPT 31 U/L (7.0-40); AST/SGOT 14 U/L (<34); BILIRUBIN,DIRECT 0.4 MG/DL (<0.4); BILIRUBIN,TOTAL 1.2 MG/DL (0.3-1.2); BLOOD UREA NITROGEN 33 MG/DL (9-23); CALCIUM LEVEL 9.9 MG/DL (8.3-10.6); CARBON DIOXIDE LEVEL 25 MMOL/L (20-31); CHLORIDE LEVEL 107 MMOL/L (98-107); CK-MB VALUE MASS 1.4 NG/ML (<3.6); CPK CREATINE PHOSPHOKINASE 72 U/L (46-171); CREATININE FOR GFR 0.96 MG/DL (0.70-1.30); GLOMERULAR FILTRATION RATE > 60.0 (>49); GLUCOSE, FASTING 100 MG/DL (74-106); MB/CK RELATIVE INDEX 1.94 (< OR =4); POTASSIUM SERUM 3.8 MMOL/L (3.5-5.1); SODIUM LEVEL 142 MMOL/L (136-145); TOTAL PROTEIN 6.5 G/DL (5.7-8.2)
[2023-02-16 03:13] LABS: APPEARANCE, URINE HAZY (CLEAR); BACTERIA, URINE AUTO NEGATIVE (NEGATIVE); BILIRUBIN, URINE AUTO NEGATIVE (NEGATIVE); BLOOD, URINE BLOOD 3+ (NEGATIVE); COLOR, URINE YELLOW (YELLOW); GLUCOSE, URINE (UA) AUTO NEGATIVE (NEGATIVE); KETONE, URINE AUTO NEGATIVE (NEGATIVE); LEUKOCYTE ESTERASE, URINE AUTO NEGATIVE (NEGATIVE); NITRITE, URINE AUTO NEGATIVE (NEGATIVE); PROTEIN, URINE AUTO NEGATIVE (NEGATIVE); RBC, URINE AUTO TNTC /HPF (0-3); SPECIFIC GRAVITY URINE AUTO 1.019 (1.002-1.035); SQUAMOUS EPITHELIAL CELL UR AU 0 /HPF (0-6); UROBILINOGEN, URINE AUTO 0.2 mg/dL (0.0-2.0); WBC, URINE AUTO 1 /HPF (0-3)
[2023-02-16] MEDS ORDERED: KETOROLAC 30 MG/ML 1ML VIAL IV ONE (04:00)
[2023-02-16 06:10] VITALS: BP 112/78; TEMP 97.5; O2SAT 97
== END 2023-02-16 06:13 | disposition home or self-care (01) ==
LOC: M ED 23:44
DX: N20.0 Calculus of kidney (principal); K59.00 Constipation, unspecified; E66.9 Obesity, unspecified; K21.9 Gastro-esophageal reflux disease without esophagitis; G47.33 Obstructive sleep apnea (adult) (pediatric); N40.0 Benign prostatic hyperplasia without lower urinary tract symptoms; K57.90 Diverticulosis of intestine, part unspecified, without perforation or abscess without bleeding; Z88.5 Allergy status to narcotic agent; Z79.82 Long term (current) use of aspirin; Z79.899 Other long term (current) drug therapy

== ENCOUNTER → 2023-07-16 | Outpatient (CLI) | payer MEDICARE ==
[~2023-07-16] MED LIST changes: -OXYB5TAB10 PO; +OXYB5TAB11 PO
== END ==
LOC: M RAD 08:50
PROVIDERS: ATTEND Urology
DX: D44.12 Neoplasm of uncertain behavior of left adrenal gland (principal); N20.0 Calculus of kidney; K57.11 Diverticulosis of small intestine without perforation or abscess with bleeding

== ENCOUNTER → 2023-07-30 | Outpatient (REF) | payer MEDICARE | LOC: M LAB REF 16:23 | PROVIDERS: ATTEND Internal Medicine | DX: E27.8 Other specified disorders of adrenal gland (principal); I42.9 Cardiomyopathy, unspecified ==

== ENCOUNTER → 2023-11-15 | Outpatient (REF) | payer MEDICARE ==
[~2023-11-15] MED LIST changes: -OXYB5TAB11 PO; +OXYB5TAB14 PO
== END ==
LOC: M LAB REF 16:10
PROVIDERS: ATTEND Internal Medicine
DX: M19.90 Unspecified osteoarthritis, unspecified site (principal)

== ENCOUNTER → 2024-01-09 | Outpatient (REF) | payer MEDICARE ==
[2024-01-09 14:54] LABS: INR 1.05; PROTHROMBIN TIME 13.4 SECONDS (12.5-14.5)
[2024-01-09 15:03] LABS: APPEARANCE, URINE CLEAR (CLEAR); BACTERIA, URINE AUTO NEGATIVE (NEGATIVE); BILIRUBIN, URINE AUTO NEGATIVE (NEGATIVE); BLOOD, URINE BLOOD NEGATIVE (NEGATIVE); COLOR, URINE YELLOW (YELLOW); GLUCOSE, URINE (UA) AUTO NEGATIVE (NEGATIVE); KETONE, URINE AUTO NEGATIVE (NEGATIVE); LEUKOCYTE ESTERASE, URINE AUTO NEGATIVE (NEGATIVE); MUCUS, URINE SMALL (NEGATIVE); NITRITE, URINE AUTO NEGATIVE (NEGATIVE); PROTEIN, URINE AUTO NEGATIVE (NEGATIVE); RBC, URINE AUTO 0 /HPF (0-3); SPECIFIC GRAVITY URINE AUTO 1.017 (1.002-1.035); SQUAMOUS EPITHELIAL CELL UR AU 0 /HPF (0-6); UROBILINOGEN, URINE AUTO 0.2 mg/dL (0.0-2.0); WBC, URINE AUTO 0 /HPF (0-3)
== END ==
LOC: M LAB REF 12:21
PROVIDERS: ATTEND Internal Medicine
DX: N20.0 Calculus of kidney (principal); Z79.01 Long term (current) use of anticoagulants

== ENCOUNTER → 2024-02-17 | Outpatient (CLI) | payer MEDICARE | LOC: M RAD 07:34 | PROVIDERS: ATTEND Urology | DX: N20.0 Calculus of kidney (principal) ==

== ENCOUNTER → 2024-04-21 | Outpatient (REF) | payer MEDICARE ==
[2024-04-21 17:41] LABS: C REACTIVE PROTEIN QUANTITATIV < 0.40 MG/DL (<1.0)
== END ==
LOC: M LAB REF 16:17
PROVIDERS: ATTEND Internal Medicine
DX: M10.9 Gout, unspecified (principal)

== ENCOUNTER → 2024-06-26 | Outpatient (REF) | payer MEDICARE | LOC: M LAB REF 12:12 | PROVIDERS: ATTEND Internal Medicine | DX: M10.9 Gout, unspecified (principal) ==

== ENCOUNTER → 2024-07-14 | Outpatient (REF) | payer MEDICARE | LOC: M LAB REF 12:17 | PROVIDERS: ATTEND Internal Medicine | DX: E27.8 Other specified disorders of adrenal gland (principal) ==

== ENCOUNTER → 2024-08-06 | Outpatient (CLI) | payer MEDICARE | LOC: M CARPUL 15:21 | PROVIDERS: ATTEND Internal Medicine Cardiovascular Disease | DX: I50.32 Chronic diastolic (congestive) heart failure (principal); I77.810 Thoracic aortic ectasia; I27.81 Cor pulmonale (chronic); I44.0 Atrioventricular block, first degree; I45.19 Other right bundle-branch block; I08.3 Combined rheumatic disorders of mitral, aortic and tricuspid valves ==

== ENCOUNTER → 2024-08-18 | Outpatient (CLI) | payer MEDICARE | LOC: M SOG 15:34 | PROVIDERS: ATTEND Physician Assistant | DX: M25.522 Pain in left elbow (principal); M25.532 Pain in left wrist ==

== ENCOUNTER → 2024-09-07 | Outpatient (CLI) | payer MEDICARE ==
[~2024-09-07] MED LIST changes: +ISOVUE-370 76% 100ML VIAL ONE
== END ==
LOC: M PLAIMG 12:50
PROVIDERS: ATTEND Internal Medicine
DX: E27.8 Other specified disorders of adrenal gland (principal)
CPT/HCPCS: 74170; Q9967

== ENCOUNTER → 2024-11-30 | Outpatient (REF) | payer MEDICARE ==
[~2024-11-30] MED LIST changes: -ISOVUE-370 76% 100ML VIAL ONE
[2024-11-30 18:11] LABS: LIPASE 30 U/L (12-53)
[2024-11-30 18:12] LABS: C REACTIVE PROTEIN QUANTITATIV < 0.50 MG/DL (<1.0)
== END ==
LOC: M LAB REF 17:09
PROVIDERS: ATTEND Internal Medicine
DX: R10.32 Left lower quadrant pain (principal)

== ENCOUNTER 2025-01-13 14:44 | Emergency (ER) | payer MEDICARE ==
[~2025-01-13] VITALS: Ht 170.2 cm; Wt 141.8 kg
[~2025-01-13 14:44] MED LIST changes: -AZEL1SPR3 NARES; -B-12100010 PO; -CLAR5TAB11 PO; -FLAX1CAP5 PO; -NOXI1TAB PO; -REST0.05 OD
[2025-01-13] MEDS ORDERED: FLAX1CAP5 PO (14:57)
[2025-01-13] MEDS ORDERED: CLAR5TAB11 PO (15:03)
[2025-01-13] MEDS ORDERED: PANT40TA29 PO (15:03)
[2025-01-13] MEDS ORDERED: NOXI1TAB PO (15:03)
[2025-01-13] MEDS ORDERED: REST0.05 OD (15:03)
[2025-01-13] MEDS ORDERED: B-12100010 PO (15:03)
[2025-01-13] MEDS ORDERED: AZEL1SPR3 NARES (15:03)
[2025-01-13 16:12] VITALS: BP 141/61; TEMP 98.4; O2SAT 98
== END 2025-01-13 16:13 | disposition home or self-care (01) ==
LOC: M ED 14:44
DX: S86.911A Strain of unspecified muscle(s) and tendon(s) at lower leg level, right leg, initial encounter (principal); X58.XXXA Exposure to other specified factors, initial encounter; Y92.9 Unspecified place or not applicable; Y93.9 Activity, unspecified; Y99.9 Unspecified external cause status; E78.5 Hyperlipidemia, unspecified; D68.51 Activated protein C resistance; N40.0 Benign prostatic hyperplasia without lower urinary tract symptoms; Z79.82 Long term (current) use of aspirin; Z79.899 Other long term (current) drug therapy; Z88.5 Allergy status to narcotic agent; M79.661 Pain in right lower leg
CPT/HCPCS: 36415; 80053; 85025; 85379; 93971; 99283; G0463

== ENCOUNTER → 2025-01-13 | Outpatient (CLI) | payer MEDICARE ==
[~2025-01-13] MED LIST changes: +AZEL1SPR3 NARES; +B-12100010 PO; +CLAR5TAB11 PO; +FLAX1CAP5 PO; -FLOM0.4C39 PO; +NOXI1TAB PO; +REST0.05 OD; +TAMS-18 PO
[2025-01-13 12:13] LABS: BASO % 0.5 % (0.0-1.0); EOS # 0.1 10^3/uL (0.0-0.5); EOS % 1.1 % (0.0-3.0); HEMATOCRIT 47.9 % (42.0-52.0); HEMOGLOBIN 15.5 g/dl (13.5-17.5); LYMPH # 1.2 10^3/uL (1.5-5.0); LYMPH % 18.1 % (24.0-44.0); MEAN CORPUSCULAR HEMOGLOBIN 30.3 pg (27.0-33.0); MEAN CORPUSCULAR HGB CONC 32.4 g/dl (32.0-36.5); MEAN CORPUSCULAR VOLUME 93.6 fl (80.0-96.0); MONO # 0.5 10^3/uL (0.0-0.8); MONO % 7.3 % (2.0-8.0); NEUTROPHILS # 4.8 10^3/uL (1.5-8.5); NEUTROPHILS % 72.4 % (36.0-66.0); PLATELET COUNT, AUTOMATED 168 10^3/uL (150-450); RED BLOOD COUNT 5.12 10^6/uL (4.30-6.10); WHITE BLOOD COUNT 6.6 10^3/uL (4.0-10.0)
[2025-01-13 12:18] LABS: ALBUMIN 4.1 G/DL (3.2-5.2); CALCIUM LEVEL 9.3 MG/DL (8.3-10.6); CREATININE FOR GFR 0.93 MG/DL (0.70-1.30); GLOMERULAR FILTRATION RATE 88.3 (>42); POTASSIUM SERUM 4.5 MMOL/L (3.5-5.1); TOTAL PROTEIN 6.7 G/DL (5.7-8.2)
== END ==
LOC: M WUC 08:42
PROVIDERS: ATTEND Physician Assistant
DX: M79.661 Pain in right lower leg (principal)

== ENCOUNTER → 2025-01-20 | Outpatient (CLI) | payer MEDICARE ==
[~2025-01-20] MED LIST changes: +AZEL1SPR3 NARES; +B-12100010 PO; +CLAR5TAB11 PO; +FLAX1CAP5 PO; +NOXI1TAB PO; +REST0.05 OD
== END ==
LOC: M EKG 07:40
PROVIDERS: ATTEND Registered Nurse
DX: I49.3 Ventricular premature depolarization (principal); Z53.9 Procedure and treatment not carried out, unspecified reason

== ENCOUNTER → 2025-04-09 | Outpatient (CLI) | payer MEDICARE ==
[~2025-04-09] MED LIST changes: -AMIO200T49 PO; +AMIO200T54 PO; +THERTAB52 PO; +VITA100093 PO
== END ==
LOC: M RAD 09:15
PROVIDERS: ATTEND Urology
DX: N20.0 Calculus of kidney (principal); N28.1 Cyst of kidney, acquired